=== PATIENT | female | born 1975 | race Caucasian/White ===

== ENCOUNTER 2017-04-03 18:20 | Emergency (ER) | payer BC ==
[~2017-04-03] VITALS: Ht 160 cm; Wt 74.8 kg
[~2017-04-03 18:20] MED LIST: MOBIC15 MG PO; NORGESTIMATE-E1 EACH PO; PERCOCET 5-3251 EACH PO; PERCOCET PO; PHENERGAN 25 MG25 M1 PO
[2017-04-03 19:28] LABS: ABSOLUTE NEUTROPHILS 3.8 thou/uL (1.4-8.2); BASOPHILS 0.7 % (0.0-2.0); EOSINOPHILS 2.7 % (0.0-3.0); HEMATOCRIT 40.7 % (37.0-47.0); HEMOGLOBIN 13.5 gm/dL (12.0-15.0); LYMPHOCYTES 34.6 % (24.0-44.0); MCH 30.5 pg (26.0-34.0); MCHC 33.2 g/dL (28.0-37.0); MCV 91.9 fL (80.0-100.0); MONOCYTES 8.4 % (1.0-8.0); PLATELET COUNT 303 thou/uL (150-400); POLYS 53.6 % (36.0-66.0); RBC 4.42 mil/uL (4.20-5.00); RDW 12.6 % (10.5-14.5); WBC 7.1 thou/uL (4.0-11.0)
[2017-04-03 19:31] LABS: MANUAL DIFF NO
[2017-04-03 19:36] LABS: CREATININE 0.8 mg/dL (0.6-1.0); POTASSIUM 3.6 mmol/L (3.5-5.1)
[2017-04-03 20:20] LABS: URINE BILIRUBIN NEGATIVE (Negative); URINE BLOOD TRACE (Negative); URINE COLOR YELLOW; URINE GLUCOSE-RANDOM* NEGATIVE (Negative); URINE KETONES NEGATIVE (Negative); URINE LEUKOCYTES-REFLEX TRACE (Negative); URINE PROTEIN (DIPSTICK) NEGATIVE (Negative); URINE SPECIFIC GRAVITY <= 1.005 (1.003-1.035); URINE UROBILINOGEN 0.2 E.U./dl (0.2-1.0)
[2017-04-03 20:34] LABS: CASTS None Seen /LPF (None Seen); CRYSTALS None Seen /LPF (None Seen); SQUAMOUS >10 Many /LPF (0-3); URINE RBC 0-2 Rare /HPF (0-2)
[2017-04-03] MEDS ORDERED: ANTIVERT25 MG PO (21:23)
== END 2017-04-03 21:39 | disposition home or self-care (01) ==
LOC: ER 18:20
PROVIDERS: Emergency Medicine
DX: R42 Dizziness and giddiness (principal); R53.1 Weakness; R11.0 Nausea

== ENCOUNTER 2019-04-13 16:29 | Emergency (ER) | payer BC ==
[~2019-04-13] VITALS: Ht 154.9 cm; Wt 86.2 kg
[~2019-04-13 16:29] MED LIST changes: +ANTIVERT25 MG PO
[2019-04-13 16:49] LABS: URINE BILIRUBIN NEGATIVE (Negative); URINE BLOOD TRACE (Negative); URINE CLARITY CLEAR; URINE COLOR YELLOW; URINE GLUCOSE-RANDOM* NEGATIVE (Negative); URINE KETONES NEGATIVE (Negative); URINE LEUKOCYTES NEGATIVE (Negative); URINE NITRITE NEGATIVE (Negative); URINE PROTEIN (DIPSTICK) NEGATIVE (Negative); URINE UROBILINOGEN 0.2 E.U./dl (0.2-1.0)
[2019-04-13] MEDS ORDERED: TOPAMAX50 MG PO (16:56)
[2019-04-13 17:03] LABS: ABSOLUTE NEUTROPHILS 4.6 thou/uL (1.4-8.2); EOSINOPHILS 2.2 % (0.0-3.0); HEMATOCRIT 39.8 % (37.0-47.0); HEMOGLOBIN 13.6 gm/dL (12.0-15.0); LYMPHOCYTES 35.1 % (24.0-44.0); MCH 31.2 pg (26.0-34.0); MCHC 34.2 g/dL (28.0-37.0); MCV 91.2 fL (80.0-100.0); MONOCYTES 7.5 % (1.0-8.0); PLATELET COUNT 326 thou/uL (150-400); POLYS 54.2 % (36.0-66.0); RBC 4.36 mil/uL (4.20-5.00); RDW 12.8 % (10.5-14.5); WBC 8.6 thou/uL (4.0-11.0)
[2019-04-13 17:11] LABS: CALCIUM 9.2 mg/dL (8.5-10.1); CREATININE 0.9 mg/dL (0.6-1.0); POTASSIUM 3.4 mmol/L (3.5-5.1)
[2019-04-13 17:17] LABS: ALBUMIN 3.4 g/dL (3.4-5.0); TOTAL BILIRUBIN 0.2 mg/dL (<0.1-1.0); TOTAL PROTEIN 7.7 g/dL (6.4-8.2)
[2019-04-13 18:25] VITALS: BP 115/74
== END 2019-04-13 18:25 | disposition home or self-care (01) ==
LOC: ER 16:29
PROVIDERS: Emergency Medicine
DX: R55 Syncope and collapse (principal); R11.0 Nausea; R00.2 Palpitations; Z90.10 Acquired absence of unspecified breast and nipple

== ENCOUNTER → 2019-06-12 | Outpatient (CLI) | payer BC ==
[~2019-06-12] MED LIST changes: +TOPAMAX50 MG PO
== END ==
LOC: RAD 01:50
DX: Z12.31 Encounter for screening mammogram for malignant neoplasm of breast (principal)